=== PATIENT | male | born 1955 | race Two or more races ===

== ENCOUNTER 2024-01-12 21:34 | Emergency (ER) | payer MEDICARE, OTHER ==
[~2024-01-12] VITALS: Ht 167.6 cm; Wt 62.6 kg
--- NOTE | 2024-01-12 21:59 | NUR ---
BIB RA881 CC FOUND IN THE FLOOR PT STATED 8 TO 10 WAS IN THE FLR NO HEAD TRAUMA, PLACED TO BED AND HOOKED INTO A MONITOR
--- NOTE | 2024-01-12 22:50 | NUR ---
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
[2024-01-12 23:02] LABS: BASOPHILS # (AUTO) 0.1 K/uL (0.0-0.2); BASOPHILS % (AUTO) 0.9 % (0.0-2.0); EOSINOPHILS # (AUTO) 0.3 K/uL (0.0-0.7); EOSINOPHILS % (AUTO) 2.1 % (0.0-6.0); HEMATOCRIT 42 % (39-51); HEMOGLOBIN 13.6 g/dL (13.5-17.5); LYMPHOCYTES # (AUTO) 1.5 K/uL (0.8-4.8); LYMPHOCYTES % (AUTO) 9.2 % (20.0-44.0); MEAN CORPUSCULAR HEMOGLOBIN 29 PG (26.0-33.0); MEAN CORPUSCULAR HGB CONC 33 g/dl (31.0-36.0); MEAN CORPUSCULAR VOLUME 88 fL (80-96); MONOCYTES # (AUTO) 1.1 K/uL (0.1-1.30); MONOCYTES % (AUTO) 7.1 % (2.0-12.0); NEUTROPHILS # (AUTO) 12.9 K/uL (1.8-8.9); NEUTROPHILS % (AUTO) 80.7 % (43.0-81.0); PLATELET COUNT (AUTO) 300 K/uL (150-450); RED BLOOD CELL COUNT(AUTO) 4.75 MIL/uL (4.5-6.0)
--- NOTE | 2024-01-12 23:10 | NUR ---
22g IV in the left wrist .
--- NOTE | 2024-01-12 23:21 | NUR ---
patient back from CT scan
[2024-01-12 23:26] LABS: LACTIC ACID 2.5 mmol/L (0.4-2.0)
[2024-01-13 00:02] LABS: CALCIUM, SERUM 9.2 mg/dL (8.5-10.1); CARBON DIOXIDE 20 mmol/L (21-32); CHLORIDE 101 mmol/L (98-107); CREATININE 1.1 mg/dL (0.6-1.3); GLUCOSE 108 mg/dL (74-106); POTASSIUM 6.1 mmol/L (3.5-5.1); SODIUM SERUM 138 mmol/L (136-145); UREA NITROGEN, BLOOD 19 mg/dL (7-18)
[2024-01-13 00:15] LABS: ALANINE AMINOTRANSFERASE 30 U/L (12-78); ALBUMIN 3.5 g/dL (3.4-5.0); ALKALINE PHOSPHATASE 81 U/L (46-116); ASPARTATE AMINOTRANSFERASE 50 U/L (15-37); BILIRUBIN,TOTAL 1.3 mg/dL (0.2-1.0); NT-PRO BNP 710 pg/mL (0-125); TOTAL PROTEIN, SERUM 8.6 g/dL (6.4-8.2)
[2024-01-13] MEDS: IV NS 0.9% 1,000 ML IV ONE (00:32)
[2024-01-13 00:57] LABS: CALCIUM, SERUM 8.7 mg/dL (8.5-10.1); CREATININE 1.2 mg/dL (0.6-1.3); POTASSIUM 4.1 mmol/L (3.5-5.1)
--- NOTE | 2024-01-13 01:38 | NUR ---
Urine collected and sent to lab
[2024-01-13 01:52] LABS: APPEARANCE,URINE CLEAR (CLEAR); BILIRUBIN,URINE NEGATIVE (NEGATIVE); BLOOD, URINE 2+ Ery/uL (NEGATIVE); COLOR,URINE YELLOW (YELLOW); KETONES,URINE 3+ mg/dL (NEGATIVE); LEUKOCYTE ESTERASE ,URINE NEGATIVE (NEGATIVE); NITRITE, URINE NEGATIVE (NEGATIVE); PH,URINE 5.5 (5.0-8.0); PROTEIN,URINE 1+ mg/dl (NEGATIVE); UGLUCOSE 3+ mg/dL (NEGATIVE); UROBILINOGEN,URINE 0.2 EU/dL (0.2)
[2024-01-13 02:02] LABS: ADD URINE CULTURE NO; BACTERIA,URINE Rare /HPF (None Seen); SQUAMOUS EPITHELIAL CELL,UR Rare /HPF (None Seen); WBC,URINE 0-2 /HPF (0-3)
[2024-01-13 02:24] LABS: BILIRUBIN,DIRECT 0.3 mg/dL (0.0-0.2)
[2024-01-13 02:32] LABS: LACTIC ACID REFLEX 2.4 mmol/L (0.4-1.9)
--- NOTE | 2024-01-13 04:00 | NUR ---
NAOMI MCCARTHY: [phone]
--- NOTE | 2024-01-13 04:40 | NUR ---
Patient discharged to home in stable condition. Written and verbal after care instructions given. Patient verbalizes understanding of instruction.
[2024-01-13 04:42] VITALS: BP 127/54; TEMP 98; O2SAT 98
== END 2024-01-13 04:43 | disposition home or self-care (01) ==
LOC: ER 21:35 → EDBD 21:35 → ER 01-13 04:43
DX: R51.9 Headache, unspecified (principal); R53.1 Weakness; R06.02 Shortness of breath; R20.0 Anesthesia of skin; R20.2 Paresthesia of skin; E87.20 Acidosis, unspecified; I10 Essential (primary) hypertension; E11.9 Type 2 diabetes mellitus without complications; Z86.79 Personal history of other diseases of the circulatory system; Z87.19 Personal history of other diseases of the digestive system; W18.39XA Other fall on same level, initial encounter; Y93.89 Activity, other specified; Y92.098 Other place in other non-institutional residence as the place of occurrence of the external cause; Y99.8 Other external cause status
CPT/HCPCS: 99285; 70450; 71045; 93005; 85025; 83605 ×2; 36415 ×2; 80053; 84484; 83880; 96360; 82248; 80048; 87040; 81001; J7030

== ENCOUNTER 2024-02-23 23:16 | Inpatient (IN) | payer MEDICARE ==
[~2024-02-23] VITALS: Ht 167.6 cm; Wt 58.1 kg
[2024-02-24] VITALS (13 sets, daily range): BP systolic 96–123; BP diastolic 55–68; TEMP 97.7–99; O2SAT 97–100
[2024-02-24 00:05] LABS: BASOPHILS # (AUTO) 0.2 K/uL (0.0-0.2); EOSINOPHILS # (AUTO) 0.4 K/uL (0.0-0.7); EOSINOPHILS % (AUTO) 2.5 % (0.0-6.0); HEMATOCRIT 21 % (39-51); LYMPHOCYTES # (AUTO) 1.3 K/uL (0.8-4.8); LYMPHOCYTES % (AUTO) 7.4 % (20.0-44.0); MEAN CORPUSCULAR HEMOGLOBIN 27 PG (26.0-33.0); MEAN CORPUSCULAR HGB CONC 33 g/dl (31.0-36.0); MEAN CORPUSCULAR VOLUME 84 fL (80-96); MONOCYTES % (AUTO) 5.8 % (2.0-12.0); NEUTROPHILS # (AUTO) 14.3 K/uL (1.8-8.9); NEUTROPHILS % (AUTO) 83.3 % (43.0-81.0); PLATELET COUNT (AUTO) 679 K/uL (150-450); RED BLOOD CELL COUNT(AUTO) 2.47 MIL/uL (4.5-6.0); RED CELL DISTRIBUTION WIDTH 15.6 % (11.5-15.0); WHITE BLOOD COUNT (AUTO) 17.1 K/uL (4.3-11.0)
[2024-02-24 00:10] LABS: HEMOGLOBIN 6.8 g/dL (13.5-17.5)
[2024-02-24 00:15] LABS: CALCIUM, SERUM 7.9 mg/dL (8.5-10.1); CARBON DIOXIDE 24 mmol/L (21-32); CHLORIDE 102 mmol/L (98-107); GLUCOSE 252 mg/dL (74-106); POTASSIUM 4.1 mmol/L (3.5-5.1); SODIUM SERUM 133 mmol/L (136-145); UREA NITROGEN, BLOOD 16 mg/dL (7-18)
[2024-02-24 00:28] LABS: NT-PRO BNP 1168 pg/mL (0-125)
[2024-02-24 00:48] LABS: BILIRUBIN,DIRECT 0.1 mg/dL (0.0-0.2); BILIRUBIN,TOTAL 0.2 mg/dL (0.2-1.0); TOTAL PROTEIN, SERUM 6.2 g/dL (6.4-8.2)
[2024-02-24 00:57] LABS: ALBUMIN 1.1 g/dL (3.4-5.0)
[2024-02-24] MEDS ORDERED: Z GUARD REMEDY 4 OZ OINT TP PRN (01:00)
[2024-02-24] MEDS ORDERED: DEXTROSE 50%-WATER 50 ML DISP.SYRIN IV PRN (01:00)
[2024-02-24] MEDS ORDERED: ONDANSETRON HCL/PF 4 MG/2 ML VIAL IVP PRN (01:00)
[2024-02-24] MEDS ORDERED: ACETAMINOPHEN 325 MG TABLET PO PRN (01:00)
[2024-02-24] MEDS ORDERED: MAGNESIUM HYDROXIDE 30 ML UDC PO PRN (01:00)
[2024-02-24] MEDS ORDERED: MAG HYDROX/AL HYDROX/SIMETH 30 ML UDC PO PRN (01:00)
[2024-02-24] MEDS ORDERED: AMLO-212 PO (01:03)
[2024-02-24] MEDS ORDERED: INSU100V7 SQ (01:03)
[2024-02-24 01:08] LABS: EOSINOPHILS % (MANUAL) 1 % (0-4); LYMPHOCYTES % (MANUAL) 12 % (16-48); MONOCYTES % (MANUAL) 4 % (0-11.0); NEUTROPHILS % (MANUAL) 83 (42-76); PLATELET ESTIMATE INCREASED
[2024-02-24 01:37] LABS: INR 1.2 (0.91-1.10); PARTIAL THROMBOPLASTIN TIME 33.7 SEC (24.3-34.3); PROTHROMBIN TIME 12.6 SECS (9.2-11.1)
[2024-02-24 02:57] LABS: BASOPHILS # (AUTO) 0.2 K/uL (0.0-0.2); BASOPHILS % (AUTO) 1.4 % (0.0-2.0); EOSINOPHILS # (AUTO) 0.5 K/uL (0.0-0.7); EOSINOPHILS % (AUTO) 3.1 % (0.0-6.0); LYMPHOCYTES % (AUTO) 11.6 % (20.0-44.0); MEAN CORPUSCULAR HEMOGLOBIN 27 PG (26.0-33.0); MEAN CORPUSCULAR HGB CONC 32 g/dl (31.0-36.0); MEAN CORPUSCULAR VOLUME 84 fL (80-96); MONOCYTES % (AUTO) 6.1 % (2.0-12.0); NEUTROPHILS # (AUTO) 13.2 K/uL (1.8-8.9); NEUTROPHILS % (AUTO) 77.8 % (43.0-81.0); PLATELET COUNT (AUTO) 645 K/uL (150-450); RED BLOOD CELL COUNT(AUTO) 2.33 MIL/uL (4.5-6.0); RED CELL DISTRIBUTION WIDTH 15.8 % (11.5-15.0)
[2024-02-24 03:00] LABS: HEMOGLOBIN 6.3 g/dL (13.5-17.5)
[2024-02-24 03:01] LABS: HEMATOCRIT 19 % (39-51)
[2024-02-24 03:28] LABS: CALCIUM, SERUM 7.9 mg/dL (8.5-10.1); CREATININE 0.9 mg/dL (0.6-1.3); MAGNESIUM 2.2 mg/dL (1.8-2.4); PHOSPHORUS 3.1 mg/dL (2.5-4.9); POTASSIUM 4.6 mmol/L (3.5-5.1)
[2024-02-24] MEDS: INSULIN REGULAR, HUMAN 100 UNIT/ML 3 ML VIAL SQ PRN (06:57)
[2024-02-24] MEDS: BLOOD SUGAR DIAGNOSTIC 1 EACH STRIP IN SCH (06:58)
[2024-02-24] MEDS: PANTOPRAZOLE 40 MG VIAL IV SCH ×2 (08:11→16:40)
[2024-02-24 08:55] LABS: HEMOGLOBIN 11.2 g/dL (13.5-17.5)
[2024-02-24 10:15] LABS: IRON, SERUM 11 ug/dl (50-175); TOTAL IRON BINDING CAPACITY 114 ug/dl (250-450)
[2024-02-24] MEDS: AMLODIPINE BESYLATE 5 MG TABLET PO SCH (11:07)
[2024-02-24 11:49] LABS: FERRITIN 1694 ng/mL (8-388)
[2024-02-24] MEDS: CEFEPIME 2 GM in IV D5W 100 ML IV SCH (14:05)
[2024-02-24] MEDS: VANCOMYCIN HCL 1.25 GM in IV D5W 250 ML IV ONE (14:42)
[2024-02-24] MEDS ORDERED: METOPROLOL TARTRATE INJ 5 MG/5 ML AMPUL ONE (14:58)
[2024-02-24] MEDS ORDERED: IOHEXOL-350 100 ML VIAL IV ONE (14:58)
[2024-02-24] MEDS ORDERED: IV NS 0.9% 250 ML IV ONE (14:59)
[2024-02-24] MEDS ORDERED: CT SWABBABLE VALVE TRANS SET 1 EA INFUS.SET MC ONE (14:59)
[2024-02-24] MEDS ORDERED: NITROGLYCERIN 0.4 MG/TAB BOTTLE ONE (15:00)
[2024-02-24] MEDS: INSULIN GLARGINE, 100 UNIT/ML CARTRIDGE SQ SCH (16:33)
[2024-02-24 18:32] LABS: HEMOGLOBIN 8.6 g/dL (13.5-17.5)
[2024-02-25 00:15] VITALS: BP 128/63; TEMP 99; O2SAT 100
[2024-02-25] MEDS: VANCOMYCIN 750 MG in IV D5W 250 ML IV SCH (01:21)
[2024-02-25 04:18] VITALS: BP 138/85; TEMP 99.2; O2SAT 100
[2024-02-25 06:33] LABS: BASOPHILS # (AUTO) 0.1 K/uL (0.0-0.2); BASOPHILS % (AUTO) 0.6 % (0.0-2.0); EOSINOPHILS # (AUTO) 0.6 K/uL (0.0-0.7); EOSINOPHILS % (AUTO) 3.4 % (0.0-6.0); HEMATOCRIT 26 % (39-51); HEMOGLOBIN 8.6 g/dL (13.5-17.5); LYMPHOCYTES # (AUTO) 1.6 K/uL (0.8-4.8); LYMPHOCYTES % (AUTO) 9.8 % (20.0-44.0); MEAN CORPUSCULAR HEMOGLOBIN 27 PG (26.0-33.0); MEAN CORPUSCULAR HGB CONC 33 g/dl (31.0-36.0); MEAN CORPUSCULAR VOLUME 81 fL (80-96); MONOCYTES # (AUTO) 1.1 K/uL (0.1-1.30); MONOCYTES % (AUTO) 6.7 % (2.0-12.0); NEUTROPHILS # (AUTO) 13.1 K/uL (1.8-8.9); NEUTROPHILS % (AUTO) 79.5 % (43.0-81.0); PLATELET COUNT (AUTO) 754 K/uL (150-450); RED BLOOD CELL COUNT(AUTO) 3.22 MIL/uL (4.5-6.0); RED CELL DISTRIBUTION WIDTH 15.9 % (11.5-15.0); WHITE BLOOD COUNT (AUTO) 16.5 K/uL (4.3-11.0)
[2024-02-25 07:03] LABS: CALCIUM, SERUM 8.7 mg/dL (8.5-10.1); CREATININE 0.9 mg/dL (0.6-1.3); PHOSPHORUS 2.8 mg/dL (2.5-4.9); POTASSIUM 4.1 mmol/L (3.5-5.1)
[2024-02-25 07:30] VITALS: BP 113/63; TEMP 98.4; O2SAT 100
[2024-02-25] MEDS: AMMONIUM LACTATE 227 GM BOTTLE TP SCH (08:30)
[2024-02-25 10:43] LABS: HEMOGLOBIN 9.8 g/dL (13.5-17.5)
[2024-02-25 11:30] LABS: BILIRUBIN,TOTAL 0.5 mg/dL (0.2-1.0); CALCIUM, SERUM 8.4 mg/dL (8.5-10.1); CREATININE 0.9 mg/dL (0.6-1.3); POTASSIUM 4.4 mmol/L (3.5-5.1); TOTAL PROTEIN, SERUM 6.8 g/dL (6.4-8.2)
[2024-02-25 11:37] LABS: ALBUMIN 1.3 g/dL (3.4-5.0)
[2024-02-25 12:00] VITALS: BP 110/79; TEMP 98.2; O2SAT 96
[2024-02-25] MEDS: SOD FERRIC GLUC 125 MG in IV NS 0.9% 100 ML IV SCH (14:09)
[2024-02-25] MEDS ORDERED: THERAHONEY GEL 1.5 OZ TUBE TP PRN (15:30)
[2024-02-25 16:00] VITALS: BP 133/71; TEMP 98.1; O2SAT 100
[2024-02-25 17:53] LABS: AMPHETAMINE, URINE NEGATIVE (NEGATIVE); BARBITURATE, URINE NEGATIVE (NEGATIVE); BENZODIAZEPINE, URINE NEGATIVE (NEGATIVE); CANNABINOID, URINE NEGATIVE (NEGATIVE); COCCAINE, URINE NEGATIVE (NEGATIVE); OPIATE, URINE NEGATIVE (NEGATIVE); PHENCYCLIDINE SCREEN,URINE NEGATIVE (NEGATIVE)
[2024-02-25 18:22] LABS: HEMOGLOBIN 9.5 g/dL (13.5-17.5)
[2024-02-25 20:44] VITALS: BP 122/65; TEMP 98.8; O2SAT 100
[2024-02-26 00:55] VITALS: BP 120/66; TEMP 98.4; O2SAT 98
[2024-02-26 04:31] VITALS: BP 115/56; TEMP 98.1; O2SAT 99
[2024-02-26 06:32] LABS: CALCIUM, SERUM 7.9 mg/dL (8.5-10.1); POTASSIUM 4.1 mmol/L (3.5-5.1)
[2024-02-26 07:00] VITALS: BP 110/58; TEMP 98.1; O2SAT 100
[2024-02-26] MEDS: THERAHONEY GEL 1.5 OZ TUBE TP SCH (09:28)
[2024-02-26 12:00] VITALS: BP 114/71; TEMP 97.5; O2SAT 100
[2024-02-26 16:00] VITALS: BP 117/68; TEMP 98.4; O2SAT 98
[2024-02-26 20:00] VITALS: BP 113/68; TEMP 98; O2SAT 100
[2024-02-26] MEDS: GUAIFENESIN/D-METHORPHAN HB 5 ML UDC PO PRN (22:23)
[2024-02-27 00:03] VITALS: BP 129/70; TEMP 98.6; O2SAT 100
[2024-02-27 04:00] VITALS: BP 127/71; TEMP 98.2; O2SAT 100
[2024-02-27 08:00] VITALS: BP 117/60; TEMP 98.4; O2SAT 99
[2024-02-27] MEDS ORDERED: IOHEXOL-350 100 ML VIAL IV ONE (10:29)
[2024-02-27] MEDS ORDERED: IV NS 0.9% 250 ML IV ONE (10:30)
[2024-02-27] MEDS ORDERED: CT SWABBABLE VALVE TRANS SET 1 EA INFUS.SET MC ONE (10:30)
[2024-02-27] MEDS: METOPROLOL TARTRATE INJ 5 MG/5 ML AMPUL IVP PRN (11:00)
[2024-02-27] MEDS ORDERED: METOPROLOL TARTRATE INJ 5 MG/5 ML AMPUL ONE (11:02)
[2024-02-27] MEDS ORDERED: NITROGLYCERIN 0.4 MG/TAB BOTTLE ONE (11:03)
[2024-02-27 11:11] VITALS: BP 104/46
[2024-02-27] MEDS: NITROGLYCERIN 0.4 MG/TAB BOTTLE SL ONE (11:11)
[2024-02-27] MEDS ORDERED: CEFE2FRO IV (12:21)
[2024-02-27] MEDS ORDERED: COLL30OI TP (12:21)
[2024-02-27] MEDS ORDERED: VANC750F2 IV (12:21)
[2024-02-27] MEDS ORDERED: ASPI-1420 PO (12:21)
[2024-02-27] MEDS ORDERED: ATOR20TA PO (12:21)
== END 2024-02-27 16:00 | DRG 302 ==
LOC: ER 23:17 → TELE 02-24 00:56 → MED 02-27 11:59
PROVIDERS: ADMIT Internal Medicine; ATTEND Nurse Practitioner Acute Care
PROC: 30233N1 Transfusion of Nonautologous Red Blood Cells into Peripheral Vein, Percutaneous Approach (ICD-10-PCS; principal; 2024-02-24)
DX: I25.10 Atherosclerotic heart disease of native coronary artery without angina pectoris (principal); E43 Unspecified severe protein-calorie malnutrition; R53.2 Functional quadriplegia; E87.1 Hypo-osmolality and hyponatremia; D50.9 Iron deficiency anemia, unspecified; I10 Essential (primary) hypertension; E11.9 Type 2 diabetes mellitus without complications; D75.839 Thrombocytosis, unspecified; L89.612 Pressure ulcer of right heel, stage 2; E11.621 Type 2 diabetes mellitus with foot ulcer; D50.8 Other iron deficiency anemias; L97.519 Non-pressure chronic ulcer of other part of right foot with unspecified severity; Z79.4 Long term (current) use of insulin; Z79.899 Other long term (current) drug therapy; E88.09 Other disorders of plasma-protein metabolism, not elsewhere classified; R62.7 Adult failure to thrive; Z99.3 Dependence on wheelchair; K76.82 Hepatic encephalopathy; D72.829 Elevated white blood cell count, unspecified; K80.20 Calculus of gallbladder without cholecystitis without obstruction; Z82.49 Family history of ischemic heart disease and other diseases of the circulatory system; Z83.3 Family history of diabetes mellitus
CPT/HCPCS: 36415; 70450-TC; 71045-TC; 75574; 76700-TC; 80048-TC; 80053-TC; 80076-TC; 80202-TC; 82140-TC; 82728-TC; 82962-TC; 83540-TC; 83735-TC; 83880; 84100-TC; 84484-TC; 85025-TC; 85027-TC; 85730-TC; 86850-TC; 93307-TC; 97110-TC; 97112-TC; 97116-TC; 97530-TC; 97535-TC; A4223; A6253; G0378; G0480; J0692; J1815; J2470; J2916; J3371; J3490; J7030; J7040; J7050; J7060; P9016; Q9967